=== PATIENT | female | born 1985 | race Caucasian/White ===

== ENCOUNTER 2016-04-19 06:38 | Inpatient (IN) | payer OTHER ==
[2016-04-19] VITALS (30 sets, daily range): BP systolic 78–129; BP diastolic 45–82
[~2016-04-19] VITALS: Ht 149.9 cm; Wt 86.2 kg
[~2016-04-19 06:38] MED LIST: NO MEDS; PREDNISONE50 MG PO; PRENATAL TABLE1 EAC3 PO
[2016-04-19 08:18] LABS: EOSINOPHIL (%) 0.7 % (0-5); EOSINOPHIL COUNT 0.1 K/uL (0-0.3); HEMATOCRIT 30.9 % (36.0-46.0); IMMATURE GRANULOCYTE (%) 0.2 % (0.0-0.7); IMMATURE GRANULOCYTE COUNT 0.2 K/uL; LYMPHOCYTE COUNT 1.1 K/uL (1.0-2.8); MCH 27.1 PG (29.0-34.0); MCHC 32.7 G/DL (30.0-36.0); MCV 82.8 FL (83-99); MEAN PLAT.VOLUME 11.1 uM^3 (9.5-12.4); MONOCYTE (%) 8.5 % (3-12); MONOCYTE COUNT 0.7 K/uL (0-0.8); NEUTROPHIL (%) 77.3 % (45-76); NEUTROPHIL COUNT 6.4 K/uL (1.8-6.4); PLATELET COUNT 156 K/uL (156-360); RBC DIS.WIDTH-CV 14.8 % (11.8-14.6); RBC DIS.WIDTH-SD 42.5 % (39-53); RED BLOOD COUNT 3.73 M/uL (3.80-5.20); WHITE BLOOD COUNT 8.3 K/uL (4.1-10.2)
[2016-04-20] VITALS (14 sets, daily range): BP systolic 101–118; BP diastolic 52–78
[2016-04-20] MEDS ORDERED: MOTRIN800 MG PO (06:14)
[2016-04-21 07:43] VITALS: BP 104/74
[2016-04-21 15:24] VITALS: BP 119/70
[2016-04-21 22:21] VITALS: BP 105/90
[2016-04-22 07:54] VITALS: BP 112/68
== END 2016-04-22 13:25 | disposition home or self-care (01) | DRG 775 ==
LOC: LDRP-OP 06:38 → 2WEST 06:39 → LDRP-OP 10:54 → 2WEST 04-20 05:54 → LDRP-OP 05-27 12:25
PROVIDERS: Obstetrics & Gynecology
PROC: 10907ZC Drainage of Amniotic Fluid, Therapeutic from Products of Conception, Via Natural or Artificial Opening (ICD-10-PCS; 2016-04-19)
PROC: 3E033VJ Introduction of Other Hormone into Peripheral Vein, Percutaneous Approach (ICD-10-PCS; 2016-04-19)
PROC: 3E0S3BZ Introduction of Anesthetic Agent into Epidural Space, Percutaneous Approach (ICD-10-PCS; 2016-04-19)
PROC: 10E0XZZ Delivery of Products of Conception, External Approach (ICD-10-PCS; principal; 2016-04-20)
DX: O70.1 Second degree perineal laceration during delivery (principal); O77.0 Labor and delivery complicated by meconium in amniotic fluid; Z37.0 Single live birth; Z3A.39 39 weeks gestation of pregnancy
CPT/HCPCS: 85025; C1755; G0378; J3010; J7120